=== PATIENT | female | born 1960 | race Caucasian/White ===

== ENCOUNTER 2019-01-23 09:36 | Emergency (ER) | payer BC ==
[2019-01-23 09:46] VITALS: BP 157/83
--- NOTE | 2019-01-23 10:05 | ED Physician Documentation ---
History of Present Illness - Stated complaint Stated Complaint: RT TOE IRRIITATION - Chief complaint Chief Complaint: Wound - History obtained from History obtained from: Patient - Additonal information Additional information: Patient is a 58-year-old female with history of hypertension, GERD, breast cancer in remission presenting with right second toe discomfort and skin discoloration. Patient reports they recently moved into a new house and she has had multiple spider bites. Patient has seen the spiders and denies the spiders appearing to be brown recluse or black spiders. Patient believes she was bitten on her toe about 3 days ago.Patient describes worsening pain, swelling, and darkening of her skin. Patient also believes she has had drainage, but is unsure if it is clear or purulent. Patient denies fever, nausea, vomiting, abdominal pain, urinary changes, stool changes, rash, or other concerns. However, she states she generally feels unwell. No other improving or worsening factors noted. 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 STAFF: Other (Breast cancer) - Allergies Allergies/Adverse Reactions: Allergies Allergy/AdvReac Type Severity Reaction Status Date / Time No Known Drug Allergies Allergy Verified 01/23/19 09:46 - Social History Does the pt smoke?: No Smoking Status: Never smoker Does the pt drink ETOH?: No Does the pt have substance abuse?: No PD ED PE NORMAL - Vitals Vital signs reviewed: Yes - General General: Alert and oriented X 3, No acute distress, Well developed/nourished - Cardiac Cardiac: Strong equal pulses (Cap refill brisk) - Respiratory Respiratory: No respiratory distress - Derm Derm: Warm and dry, No rash. No: Normal color (Mild swelling and duskiness to right great toe, particularly on plantar surface with no obvious lesion or drainage present. No involvement of nail.) - Extremities Extremities: No deformity, No tenderness to palpate - Neuro Neuro: Alert and oriented X 3, No motor deficit, No sensory deficit - Psych Psych: Normal mood, Normal affect Results - Vitals Vitals: Vital Signs - 24 hr 01/23/19 09:44 Temperature 36.8 C Heart Rate 69 Respiratory 18 Rate Blood Pressure 157/83 H O2 Saturation 96 Oxygen O2 Source Room air PD MEDICAL DECISION MAKING - ED course Complexity details: reviewed results, re-evaluated patient, porter field diego, d/w patient, d/w family ED course: Patient presenting with possible spider bite and overlying skin changes to right second toe.Do not find evidence of puncture wound or other bite agata. Skin changes are not consistent with obvious cellulitis, abscess, joint infection, gout, brown recluse or black spider bite. Additionally, patient denies symptoms that raise high suspicion for poisonous spider bite. As patient was at her home locally, feel the brown recluse is especially unlikely given its geographical area. Patient also reports that she saw the spiders and did not believe them to be venomous spiders. No other injuries noted and have lower suspicion for bony abnormalities. However, plan to obtain pain film to further evaluate for such, as well as any gaseous changes to indicate necrosis or gangrene. Plain films did not find any gaseous changes, but concerns for osteomyelitis. Patient requesting discharge home at that time and had discussio ns with her and her family regarding results, as well as my desire to further evaluate her likely with additional imaging and consult with orthopedics. Also discussed the need for likely antibiotics which could require IV and hospitalization.At this time, patient is still requesting discharge home and is understanding of the risks of leaving. Patient signed AMA paperwork. Disc and printout of x-ray read provided to the patient as well as discharge paperwork. Patient reports that she will follow-up with her primary care physician tomorrow. Departure - Departure Disposition: 07 Against Medical Advice Clinical Impression: Toe injury Qualifiers: Encounter type: initial encounter Laterality: right Qualified Code(s): S99.921A - Unspecified injury of right foot, initial encounter Osteomyelitis Qualifiers: Osteomyelitis type: unspecified type Osteomyelitis location: foot Laterality: right Qualified Code(s): M86.9 - Osteomyelitis, unspecified Condition: Good Follow-Up: Eliana Montelongo MD [Primary Care Provider] - Comments: Recommend keeping wound clean and dry. Use running water and soap only. Do not submerge underwater. Please do not apply anything topical to the area except for bacitracin or Neosporin. Please contact your primary care physician tomorrow to schedule immediate follow-up. Your condition may require oral or IV antibiotics, possible hospitalization, possible consult with specialist such as podiatry or orthopedics. Please return to ED sooner if experience worsening symptoms or you have further concerns.
--- NOTE | 2019-01-23 11:16 | XRAY Report ---
Reason: concern for 2nd toe, gas, necrosis Procedure Date: 01/23/2019 Accession Number: [id number] / [id number] Procedure: XR - Foot 3 View RT CPT Code: FULL RESULT: EXAM: RIGHT FOOT RADIOGRAPHY EXAM DATE: 01/23/2019 10:42 AM. CLINICAL HISTORY: Concern for 2nd toe, gas, necrosis. COMPARISON: None available. TECHNIQUE: Frontal lateral and oblique views of the foot with a spot lateral view of the second toe. FINDINGS: Bones: On the lateral view of the second toe, there is a tiny defect in the dorsal cortex of the distal phalanx under the toenail. No acute fractures are evident. Joints: Normal. No subluxations. Soft Tissues: There is soft tissue swelling around the distal aspect of the second toe. The lateral view suggest minuscule densities under the second toe toenail. IMPRESSION: Soft tissue swelling around the distal aspect of the second toe with tiny defect in the dorsal cortex of the distal phalanx, possible osteomyelitis considering the history. RADIA
== END 2019-01-23 12:31 | disposition left against medical advice (07) ==
LOC: ED 09:36
DX: S99.921A Unspecified injury of right foot, initial encounter (principal); X58.XXXA Exposure to other specified factors, initial encounter; M86.9 Osteomyelitis, unspecified; I10 Essential (primary) hypertension; K21.9 Gastro-esophageal reflux disease without esophagitis; Z85.3 Personal history of malignant neoplasm of breast; Z53.20 Procedure and treatment not carried out because of patient's decision for unspecified reasons
CPT/HCPCS: 99282; 99283

== ENCOUNTER 2020-11-22 08:00 | Outpatient (CLI) | payer BC | END 2020-11-22 23:59 | disposition home or self-care (01) | LOC: LAB.R 08:00 | PROVIDERS: ATTEND Physician Assistant Medical | DX: R30.0 Dysuria (principal) | CPT/HCPCS: 87077; 87086; 87181 ==

== ENCOUNTER 2021-02-21 08:00 | Outpatient (CLI) | payer BC ==
--- NOTE | 2021-02-21 16:11 | XRAY Report ---
PROCEDURE: Knee 3 View LT INDICATIONS: CONTUSION OF LEFT KNEE TECHNIQUE: 3 views of the left knee(s) were acquired. COMPARISON: None. FINDINGS: Bones: No fractures or dislocations. No suspicious bony lesions. Mild tricompartmental osteoarthrit is. Soft tissues: No joint effusion. No suspicious soft tissue calcifications. IMPRESSION: No fracture. No acute osseous lesion. If there persistent symptoms or continued clinical concern for pathology, then repeat plain film radiographs (7-10 days) or advanced imaging (CT, MR, bone scan) bertrand uld be considered for further evaluation. Reviewed by: Gisel Braga MD, PhD on 02/21/2021 4:09 PM PDT Approved by: Gisel Braga MD, PhD on 02/21/2021 4:09 PM PDT Station ID: [id number]
== END 2021-02-21 23:59 | disposition home or self-care (01) ==
LOC: DI.S 08:00
PROVIDERS: ATTEND Physician Assistant Medical
DX: S80.02XA Contusion of left knee, initial encounter (principal)

== ENCOUNTER 2021-03-19 10:07 | Emergency (ER) | payer BC ==
--- NOTE | 2021-03-19 12:30 | XRAY Report ---
PROCEDURE: Chest 2 View X-Ray INDICATIONS: cough x 6 months TECHNIQUE: 2 view(s) of the chest. COMPARISON: None. FINDINGS: Surgical changes and devices: Single surgical clip projects over the anterior left chest wall. Lungs and pleura: No pleural effusions or pneumothorax. Lungs are clear. Mediastinum: Mediastinal contours are normal. Heart size is normal. Bones and chest wall: No suspicious bony abnormalities. Thoracic spine degenerative disc changes. S oft tissues appear unremarkable. IMPRESSION: No acute cardiopulmonary disease process. Reviewed by: Gisel Braga MD, PhD on 03/19/2021 12:29 PM PDT Approved by: Gisel Braga MD, PhD on 03/19/2021 12:29 PM PDT Station ID: [id number]
--- NOTE | 2021-03-19 12:38 | ED Physician Documentation ---
PD HPI URI - Stated complaint Stated Complaint: COUGH - Chief complaint Chief Complaint: Resp - History obtained from History obtained from: Patient - History of Present Illness Timing - onset: How many weeks ago (several weeks or more of cough at nighttime when lying down (not noted if lies during the day). No exertional dyspnea nor wheezing though has had fatigue the past few weeks. Mild nasal congestion. No sore throat nor voice changes.) Timing details: Gradual onset, Waxing and waning (noted just when sleeping/lying down at night.) Associated symptoms: Dry cough, Dyspnea. No: Fever, Chills, Sore throat, Swollen nodes, Productive cough, NVD, Bilateral edema Contributing factors: COPD / asthma (when younger, no recent problems). No: Sick contact, Immunocompromised, Unimmunized Similar symptoms before: Has not had sx before (she had had cough with Lisinopril years ago but was more throat irritation and dontinual through the day; this cough is different - just at night and deeper chest type of cough.) Recently seen: Not recently seen (tried to make appt with PMD but no appts available for several weeks.) Review of Systems Constitutional: denies: Fever, Chills Nose: denies: Rhinorrhea / runny nose, Congestion Throat: denies: Sore throat Respiratory: denies: Cough PD PAST MEDICAL HISTORY - Past Medical History Past Medical History: Yes Cardiovascular: Hypertension, High cholesterol Respiratory: Sleep apnea Neuro: Other Endocrine/Autoimmune: None GI: GERD 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: Breast cancer : None HEENT: None Psych: None Musculoskeletal: None Derm: None - Past Surgical History Past Surgical History: Yes /BOOK SEWER: section, Hysterectomy, Oophrectomy, Other - Present Medications Home Medications: Ambulatory Orders Medication Instructions Recorded Confirmed ALPRAZolam [Alprazolam] 0.5 mg PO DAILY PRN 03/19/21 03/19/21 Albuterol Sulf [Ventolin Hfa 1 - 2 puffs INH Q4HR PRN #1 inhaler 03/19/21 Inhaler] FLUoxetine [PROzac] 10 mg PO DAILY 03/19/21 03/19/21 Fluticasone Propion/Salmeterol 1 each IH BID 30 Days #1 unit 03/19/21 [Fluticasone-Salmeterol 250-50] Losartan Potassium [Cozaar] 100 mg PO DAILY 03/19/21 03/19/21 OXcarbazepine [Trileptal] 300 mg PO BID 03/19/21 03/19/21 Omeprazole [PriLOSEC] 20 mg PO DAILY PRN 03/19/21 03/19/21 Pramipexole [Mirapex] 0.5 mg ORAL HS 03/19/21 03/19/21 Simvastatin [Zocor] 10 mg PO DAILY 03/19/21 03/19/21 hydroCHLOROthiazide [Hydrodiuril] 25 mg PO DAILY 03/19/21 03/19/21 - Allergies Allergies/Adverse Reactions: Allergies Allergy/AdvReac Type Severity Reaction Status Date / Time No Known Drug Allergies Allergy Verified 03/19/21 10:16 - Social History Does the pt smoke?: No Smoking Status: Former smoker Does the pt drink ETOH?: Yes ETOH Use: Wine Does the pt have substance abuse?: No - Immunizations Immunizations are current?: Yes PD ED PE NORMAL - Vitals Vital signs reviewed: Yes - General General: Alert and oriented X 3, No acute distress, Well developed/nourished - HEENT HEENT: Moist mucous membranes, Pharynx benign, Other (normal voice) - Neck Neck: Supple, no meningeal sign, No adenopathy, Thyroid normal - Cardiac Cardiac: RRR, No murmur - Respiratory Respiratory: Clear bilaterally - Derm Derm: Normal color, Warm and dry - Extremities Extremities: No edema, No calf tenderness / cord - Neuro Neuro: Alert and oriented X 3, No motor deficit, Normal speech Results - Vitals Vitals: Vital Signs - 24 hr 03/19/21 03/19/21 03/19/21 10:10 11:01 12:23 Temperature 36.8 C 36.2 C L Heart Rate 68 68 68 Respiratory 15 16 16 Rate Blood Pressure 127/84 H 156/101 H 141/91 H O2 Saturation 99 97 99 03/19/21 13:28 Temperature 35.7 C L Heart Rate 66 Respiratory 16 Rate Blood Pressure 138/92 H O2 Saturation 97 Oxygen O2 Source Room air - Labs Labs: Laboratory Tests 03/19/21 12:21 Coronavirus (PCR) NEGATIVE - Rads (name of study) chest xray Radiology: Prelim report reviewed (no acute process), See rad report PD MEDICAL DECISION MAKING - ED course Complexity details: considered differential (complains of cough just at night when lying down. No dyspnea per se during day. No cough. Consider reflux positionally. Could be reactive airways and can try MDIs/steroids. Less likely ARB. CXR clear but consider bronchial polyp or something structural that moves positionally.), d/w patient Departure - Departure Disposition: 01 Home, Self Care Clinical Impression: Nocturnal cough Condition: Stable Record reviewed to determine appropriate education?: Yes Instructions: ED Reactive Airway Disease Prescriptions: Albuterol Sulf [Ventolin Hfa Inhaler] 1 - 2 puffs INH Q4HR PRN #1 inhaler PRN Reason: Shortness Of Air/Wheezing Fluticasone Propion/Salmeterol [Fluticasone-Salmeterol 250-50] 1 each IH BID 30 Days #1 unit Comments: We can trial some inhaled medications and see if this is a respiratory cause such as reactive airway disease/mild asthma. This will sometimes be more bothered with laying down as some inflammation or congestion settles differently in the lungs in that position. Use the Advair discus twice daily for the next several weeks. Also use the albuterol inhaler 2 puffs an hour or 2 before bedtime. You can also use the albuterol periodically through the day if you are feeling short of breath or fatigue. The timing of the cough and trouble breathing at night when laying down also raises the suspicion for reflux or aspiration. Continue your current usual medications. Add some antacids such as Maalox or Mylanta just before bedtime as well over the next couple weeks. Follow-up with your primary care in the next 1 to 2 weeks, call for an appointment. Return if worsening. You have a Covid test pending. You need to self quarantine until the result is done and negative. Do not leave your house. Do not get near anybody. The results should be done in 48 to 72 hours, but sometimes longer. We will call with a positive result, the fastest way to get a negative result for confirmation though is to go to the hospital website at [email or web address], click on the my [facility] tab and sign up for the patient portal. If any friends or family get sick and would like to have a Covid test done, but do not have signs or symptoms that would necessitate being hospitalized, we encourage testing through our coronavirus swabbing station, call [phone] to schedule an appointment. Discharge Date/Time: 03/19/21 13:28
[2021-03-19 13:28] VITALS: BP 138/92
== END 2021-03-19 13:28 | disposition home or self-care (01) ==
LOC: ED 10:07
DX: R05 Cough (principal); I10 Essential (primary) hypertension; Z87.891 Personal history of nicotine dependence; Z20.822 Contact with and (suspected) exposure to COVID-19
CPT/HCPCS: 99283; 99284

== ENCOUNTER 2021-10-17 15:30 | Outpatient (CLI) | payer BC ==
[2021-10-17 20:28] LABS: BILIRUBIN,URINE NEGATIVE (NEGATIVE); GLUCOSE, URINE (UA) NEGATIVE (NEGATIVE); KETONES,URINE (UA) NEGATIVE (NEGATIVE); LEUKOCYTE ESTERASE, URINE NEGATIVE (NEGATIVE); NITRITE,URINE NEGATIVE (NEGATIVE); OCCULT BLOOD,URINE TRACE-INTA (NEGATIVE); PH,URINE 5.5 PH (5.0-7.5); PROTEIN,URINE NEGATIVE (NEGATIVE); UROBILINOGEN,URINE 0.2 (NORMAL) E.U./dL (NORMAL)
[2021-10-17 20:31] LABS: CLARITY,URINE CLEAR (CLEAR)
[2021-10-17 20:42] LABS: BACTERIA,URINE None Seen /HPF (None Seen); RBC,URINE 0-5 /HPF (0-5); SQUAMOUS EPITHELIAL CELL,UR RARE Squamous (<= Few); WBC,URINE 0-3 /HPF (0-5)
== END 2021-10-17 23:59 | disposition home or self-care (01) ==
LOC: LAB 15:30
PROVIDERS: ATTEND Physician Assistant Medical
DX: R10.30 Lower abdominal pain, unspecified (principal)
CPT/HCPCS: 81001; 87086

== ENCOUNTER 2022-01-23 18:32 | Emergency (ER) | payer BC ==
[2022-01-23 18:40] VITALS: BP 163/88
== END 2022-01-23 21:15 | disposition left against medical advice (07) ==
LOC: ED 18:32
DX: Z53.21 Procedure and treatment not carried out due to patient leaving prior to being seen by health care provider (principal)

== ENCOUNTER 2023-07-09 07:00 | Outpatient (CLI) | payer BC ==
--- NOTE | 2023-07-09 16:21 | XRAY Report ---
PROCEDURE: Wrist 3 View RT INDICATIONS: RIGHT WRIST INJURY TECHNIQUE: 3 views of the wrist were acquired. COMPARISON: None. FINDINGS: Bones: There is suggestion of possible cortical step-off at the radial aspect of the distal radius s een on PA view only which may represent nondisplaced fracture. No fractures or dislocations. No susp icious bony lesions. Soft tissues: No suspicious soft tissue calcifications or masses. IMPRESSION: Query nondisplaced distal radial fracture. Recommend correlation with point tenderness. Further evalu ation with repeat radiographs or cross-sectional imaging can be performed. Reviewed by: Jyothi Resendiz MD on 07/09/2023 4:20 PM PST Approved by: Jyothi Resendiz MD on 07/09/2023 4:20 PM PST Station ID: [id number]
== END 2023-07-09 23:59 | disposition home or self-care (01) ==
LOC: DI.S 07:00
PROVIDERS: ATTEND Physician Assistant
DX: S69.91XA Unspecified injury of right wrist, hand and finger(s), initial encounter (principal)

== ENCOUNTER 2023-07-14 08:00 | Outpatient (CLI) | payer BC ==
--- NOTE | 2023-07-14 16:38 | XRAY Report ---
PROCEDURE: Wrist 3 View RT INDICATIONS: RIGHT WRIST PAIN/INJURY TECHNIQUE: 3 views of the wrist were acquired. COMPARISON: None FINDINGS: Bones: No fractures or dislocations. No suspicious bony lesions. Soft tissues: No suspicious soft tissue calcifications or masses. IMPRESSION: Unremarkable wrist radiographs Reviewed by: Kyler Fowler MD on 07/14/2023 3:36 PM [place] Approved by: Kyler Fowler MD on 07/14/2023 3:36 PM [place] Station ID: [id number]
== END 2023-07-14 23:59 | disposition home or self-care (01) ==
LOC: DI.WOS 08:00
PROVIDERS: ATTEND Physician Assistant Surgical
DX: S69.91XA Unspecified injury of right wrist, hand and finger(s), initial encounter (principal)

== ENCOUNTER 2023-08-18 08:00 | Outpatient (CLI) | payer BC ==
--- NOTE | 2023-08-18 14:10 | XRAY Report ---
PROCEDURE: Wrist 3 View RT INDICATIONS: RIGHT WRIST FRACTURE TECHNIQUE: 3 views of the wrist were acquired. COMPARISON: 07/09/2023, 07/14/2023 FINDINGS: Bones: There is a minimally displaced distal right radial fracture with intra-articular extension. R eactive changes of subacute fracture healing noted. Remainder the visualized osseous structures appea r intact. Scapholunate interval is maintained. Soft tissues: No suspicious soft tissue calcifications or masses. IMPRESSION: Healing, minimally displaced intra-articular fracture of the distal right radius. Reviewed by: Jean Washburn MD on 08/18/2023 2:09 PM PST Approved by: Jaen Washburn MD on 08/18/2023 2:09 PM PST Station ID: [id number]
== END 2023-08-18 23:59 | disposition home or self-care (01) ==
LOC: DI.WOS 08:00
PROVIDERS: ATTEND Physician Assistant Surgical
DX: S52.531D Colles' fracture of right radius, subsequent encounter for closed fracture with routine healing (principal)

== ENCOUNTER 2023-12-09 10:24 | Outpatient (CLI) | payer BC ==
--- NOTE | 2023-12-09 14:11 | XRAY Report ---
PROCEDURE: Chest 2V INDICATIONS: FATIGUE,BODY ACHES, ACUTE COUGH TECHNIQUE: 2 views of the chest were acquired. COMPARISON: Chest x-ray, 03/19/2021. FINDINGS: Surgical changes and devices: None. Lungs and pleura: No pleural effusions or pneumothorax. Lungs are clear. Mediastinum: Mediastinal contours appear normal. Heart size is normal. Bones and chest wall: There is a small surgical clip in the left breast. No suspicious bony lesions. Overlying soft tissues appear unremarkable. IMPRESSION: No acute cardiopulmonary process. Reviewed by: Berkley Fatima MD on 12/09/2023 2:10 PM PDT Approved by: Berkley Fatima MD on 12/09/2023 2:10 PM PDT Station ID: [id number]
== END 2023-12-09 10:25 | disposition home or self-care (01) ==
LOC: DI.S 10:24
PROVIDERS: ATTEND Registered Nurse
DX: R05.1 Acute cough (principal); R53.83 Other fatigue; R52 Pain, unspecified